=== PATIENT | female | born 1980 | race Two or more races ===

== ENCOUNTER 2024-06-10 03:53 | Emergency (ER) | payer BC ==
[~2024-06-10] VITALS: Ht 162.6 cm; Wt 84.8 kg
[~2024-06-10 03:53] MED LIST: ACETAMINOOPHEN-1 TAB PO; CEFADROXIL500 MG PO; n
[2024-06-10] MEDS ORDERED: PROMETHAZINE HCL 50 MG/ML AMPUL IM STA (05:09)
[2024-06-10] MEDS ORDERED: FAMOTIDINE/PF 20 MG/2 ML VIAL IV PUSH STA (05:09)
[2024-06-10] MEDS ORDERED: FAMOTIDINE/PF 20 MG/2 ML VIAL ONE (05:13)
[2024-06-10] MEDS ORDERED: PROMETHAZINE HCL 50 MG/ML AMPUL IM ONE (05:13)
[2024-06-10] MEDS ORDERED: 0.9 % SODIUM CHLORIDE 1,000 ML IV ONE (05:15)
[2024-06-10 05:57] LABS: ALBUMIN 3.7 gm/dL (3.4-5.0); BILIRUBIN TOTAL 0.57 mg/dL (0.3-1.2); CALCIUM 9.2 mg/dL (8.5-10.1); CREATININE SERUM 0.58 mg/dL (0.55-1.02); GFR 113.46; GLOBULINA 3.9 G/DL (2.4-3.5); POTASSIUM 3.78 mEq/L (3.5-5.1); TOTAL PROTEIN 7.6 gm/dL (6.4-8.2)
[2024-06-10 06:12] LABS: HEMATOCRIT 38.2 % (36.0-45.00); HEMOGLOBIN 13.3 g/dL (12.0-15.00); MEAN CELL VOLUME 85.7 fL (80.00-100.00); MEAN CORPUSCULAR HEMOGLOBIN 29.9 pg (27.00-32.0); MEAN CORPUSCULAR HGB CONC 34.8 g/dl (32.0-36.0); PLATELET COUNT 193 K/uL (150-450); RED BLOOD COUNT 4.46 M/uL (4.00-6.00)
[2024-06-10 06:52] LABS: URINE APPEARANCE Cloudy; URINE BILIRRUBIN Negative (NEGATIVE); URINE BLOOD Negative; URINE COLOR Yellow; URINE GLUCOSE Negative (NEGATIVE); URINE KETONE Negative (NEGATIVE); URINE LEUKOCYTE Small; URINE NITRATE Negative; URINE PROTEIN Negative (NEGATIVE); URINE UROBILINOGEN 0.2 E.U./dl
[2024-06-10 06:53] LABS: URINE BACTERIA 4570.3 uL (0.0-1933); URINE EPITHELIAL CELLS 30.3 uL (0.0-38.8); URINE WBC 96.5 uL (0.0-23.2)
[2024-06-10 06:54] LABS: URINE CAST 1.32 uL (0.0-1.40)
[2024-06-10] MEDS ORDERED: MEPERIDINE HCL/PF 50 MG/ML VIAL IM STA (06:54)
[2024-06-10] MEDS ORDERED: MORPHINE SULFATE 4 MG/ML VIAL IV STA (07:15)
[2024-06-10] MEDS ORDERED: ONDANSETRON HCL 2 MG/ML VIAL IV STA (07:36)
[2024-06-10] MEDS ORDERED: ONDANSETRON HCL 2 MG/ML VIAL ONE (07:37)
[2024-06-10] MEDS ORDERED: MORPHINE SULFATE 4 MG/ML VIAL IV ONE (09:45)
== END 2024-06-10 14:15 | disposition home or self-care (01) ==
LOC: ER 03:56
PROVIDERS: General Practice
DX: R11.10 Vomiting, unspecified (principal); K80.20 Calculus of gallbladder without cholecystitis without obstruction

== ENCOUNTER 2024-06-11 12:29 | Inpatient (IN) | payer BC ==
[~2024-06-11] VITALS: Ht 162.6 cm; Wt 84.4 kg
--- NOTE | 2024-06-11 13:00 | NUR ---
PTE ALERTA,ESTABLE Y ORIENTADA,ESTA VINE POR REFERIDO MEDICO.PARA OPERAR.DE VESICULA.
[2024-06-11] MEDS ORDERED: FAMOTIDINE/PF 20 MG/2 ML VIAL IV ONE (15:15)
[2024-06-11] MEDS ORDERED: 0.9 % SODIUM CHLORIDE 500 ML IV ONE (15:15)
[2024-06-11] MEDS ORDERED: ONDANSETRON HCL 2 MG/ML VIAL IV ONE (15:15)
[2024-06-11] MEDS ORDERED: FAMOTIDINE/PF 20 MG/2 ML VIAL ONE (15:35)
[2024-06-11] MEDS ORDERED: ONDANSETRON HCL 2 MG/ML VIAL ONE (15:35)
[2024-06-11 16:31] LABS: HEMATOCRIT 41.2 % (36.0-45.00); HEMOGLOBIN 13.4 g/dL (12.0-15.00); MEAN CELL VOLUME 88.1 fL (80.00-100.00); MEAN CORPUSCULAR HEMOGLOBIN 28.7 pg (27.00-32.0); MEAN CORPUSCULAR HGB CONC 32.6 g/dl (32.0-36.0); PLATELET COUNT 182 K/uL (150-450); RED BLOOD COUNT 4.68 M/uL (4.00-6.00); RED CELL DISTRIBUTION WIDTH 13.6 % (11.5-14.5)
--- NOTE | 2024-06-11 16:38 | NUR ---
SE ORIENTA A PACIENTE SOBRE TRATAMEINTO. SE COLECTAN MUESTRAS DE LABORATORIO Y SE CANALIZA BAJO MEDIDAS ASEPTICAS. SE ADMINISTRAN MEDICAMENTOS YANET ORDEN MEDICA Y SE NOTIFICAN ESTUDIOS PENDIENTES.
[2024-06-11 16:50] LABS: INR 1.07; PARTIAL THROMBOPLASTIN TIME 30.5 SECONDS (22.0-34.0); PROTHROMBIN TIME 11.6 SECONDS (9.0-11.5)
[2024-06-11 17:02] LABS: ALBUMIN 3.4 gm/dL (3.4-5.0); BILIRUBIN TOTAL 1.06 mg/dL (0.3-1.2); CALCIUM 9.2 mg/dL (8.5-10.1); CREATININE SERUM 0.58 mg/dL (0.55-1.02); GFR 113.46; GLOBULINA 4.1 G/DL (2.4-3.5); POTASSIUM 3.54 mEq/L (3.5-5.1); TOTAL PROTEIN 7.5 gm/dL (6.4-8.2)
[2024-06-11] MEDS ORDERED: METRONIDAZOLE/SODIUM CHLORIDE 500 MG/100 ML PIGGYBACK IV ONE ×2 (17:30→20:24)
[2024-06-11] MEDS ORDERED: CIPROFLOXACIN IN 5 % DEXTROSE 400 MG/200 ML PIGGYBAG IV ONE ×2 (17:30→20:24)
[2024-06-11] MEDS ORDERED: CEFTRIAXONE SODIUM 2,000 MG VIAL IV SCH (17:58)
[2024-06-11] MEDS ORDERED: METRONIDAZOLE/SODIUM CHLORIDE 500 MG/100 ML PIGGYBACK IV SCH (18:00)
[2024-06-11 18:51] LABS: URINE APPEARANCE Cloudy; URINE BILIRRUBIN Negative (NEGATIVE); URINE BLOOD Negative; URINE COLOR Dark Yellow; URINE GLUCOSE Negative (NEGATIVE); URINE LEUKOCYTE Small; URINE NITRATE Negative; URINE PROTEIN Trace (NEGATIVE)
[2024-06-11 18:55] LABS: URINE CAST 1.91 uL (0.0-1.40); URINE EPITHELIAL CELLS 62.8 uL (0.0-38.8); URINE RBC 53.7 uL (0.0-20.8); URINE WBC 122.3 uL (0.0-23.2)
[2024-06-11] MEDS ORDERED: GABAPENTIN 300 MG CAPSULE PO SCH (19:07)
[2024-06-11] MEDS ORDERED: ACETAMINOPHEN 500 MG GEL..CAP PO SCH (19:08)
[2024-06-11] MEDS ORDERED: KETOROLAC TROMETHAMINE 15 MG VIAL IV PRN (19:15)
[2024-06-11] MEDS ORDERED: KETOROLAC TROMETHAMINE 15 MG VIAL IV ONE (19:15)
[2024-06-11 19:25] LABS: URINE BACTERIA > 9821.5 uL (0.0-1933); URINE KETONE 40 (NEGATIVE)
[2024-06-11] MEDS ORDERED: KETOROLAC TROMETHAMINE 30 MG VIAL ONE (20:23)
[2024-06-11] MEDS ORDERED: CEFTRIAXONE SODIUM 2,000 MG VIAL ONE (20:24)
[2024-06-11] MEDS ORDERED: ACETAMINOPHEN 500 MG GEL..CAP PO ONE (20:24)
[2024-06-11] MEDS ORDERED: 0.9 % SODIUM CHLORIDE 1,000 ML IV SCH (20:45)
[2024-06-11] MEDS ORDERED: ONDANSETRON HCL 4 MG in 0.9 % SODIUM CHLORIDE 50 ML IV PRN (21:00)
[2024-06-12 01:53] LABS: BILIRUBIN TOTAL 0.71 mg/dL (0.3-1.2); BILIRUBIN TOTAL 0.74 mg/dL (0.3-1.2); BILIRUBIN,CONJUGATED 0.16 mg/dL (0.0-0.2); BILIRUBIN,CONJUGATED 0.18 mg/dL (0.0-0.2); BILIRUBIN,UNCONJUGATED 0.55 mg/dL (0.0-0.6); BILIRUBIN,UNCONJUGATED 0.56 mg/dL (0.0-0.6); TOTAL PROTEIN 7.2 gm/dL (6.4-8.2)
[2024-06-12 01:54] LABS: ALBUMIN 3.2 gm/dL (3.4-5.0)
[2024-06-12 04:30] VITALS: BP 103/61
[2024-06-12] MEDS ORDERED: KETOROLAC TROMETHAMINE 30 MG VIAL IV PRN (08:00)
[2024-06-12] MEDS ORDERED: ENOXAPARIN SODIUM 40 MG/0.4 ML SYRINGE SUBCUTANEO SCH (09:00)
[2024-06-12] MEDS ORDERED: FAMOTIDINE/PF 20 MG in 0.9 % SODIUM CHLORIDE 8 ML IV PUSH SCH (09:00)
[2024-06-12 09:40] VITALS: BP 128/68
[2024-06-12 09:50] LABS: RH POSITIVE
[2024-06-12] MEDS ORDERED: CHLORHEXIDINE GLUCONATE 120 ML BOTTLE TOP SCH (16:45)
[2024-06-12 19:44] VITALS: BP 143/85; O2SAT 100
[2024-06-13] MEDS ORDERED: MORPHINE SULFATE 4 MG/ML CARTRIDGE IV PRN (00:15)
[2024-06-13] MEDS ORDERED: CEFAZOLIN SODIUM 1,000 MG VIAL ONE (01:11)
[2024-06-13] MEDS ORDERED: BUPIVACAINE HCL 0.5% 50ML VIAL ONE (01:14)
[2024-06-13] MEDS ORDERED: LIDOCAINE HCL 1%/EPINEPHRINE 20ML VIAL IJ ONE (01:14)
[2024-06-13] MEDS ORDERED: CEFAZOLIN SODIUM 1,000 MG VIAL IV ONE (01:45)
[2024-06-13] MEDS ORDERED: MORPHINE SULFATE 4 MG/ML VIAL IV ONE ×2 (03:30→04:00)
[2024-06-13] MEDS ORDERED: METRONIDAZOLE/SODIUM CHLORIDE 500 MG/100 ML PIGGYBACK IV ONE (05:00)
[2024-06-13 05:20] VITALS: BP 120/66
[2024-06-13 07:33] LABS: HEMATOCRIT 40.1 % (36.0-45.00); MEAN CORPUSCULAR HEMOGLOBIN 28.8 pg (27.00-32.0); MEAN CORPUSCULAR HGB CONC 32.3 g/dl (32.0-36.0); PLATELET COUNT 156 K/uL (150-450); RED BLOOD COUNT 4.51 M/uL (4.00-6.00); RED CELL DISTRIBUTION WIDTH 13.5 % (11.5-14.5)
[2024-06-13] MEDS ORDERED: levoFLOXacin IN DEXTROSE 5 % 5 MG/ML PIGGYBAG IV SCH (09:00)
[2024-06-13 09:31] VITALS: BP 134/78; O2SAT 100
[2024-06-13 18:54] VITALS: BP 140/77; O2SAT 100
[2024-06-13 23:25] VITALS: O2SAT 100
[2024-06-14 01:32] VITALS: BP 144/78
[2024-06-14 08:27] VITALS: BP 124/58
== END 2024-06-14 14:13 | disposition home or self-care (01) | DRG 418 ==
LOC: ER 12:32 → MEDJ 21:22
PROVIDERS: General Practice; Student in an Organized Health Care Education/Training Program; ADMIT Student in an Organized Health Care Education/Training Program; ATTEND Student in an Organized Health Care Education/Training Program
PROC: 0FT44ZZ Resection of Gallbladder, Percutaneous Endoscopic Approach (ICD-10-PCS; principal; 2024-06-13 07:00)
DX: K81.0 Acute cholecystitis (principal); N39.0 Urinary tract infection, site not specified; E66.9 Obesity, unspecified